=== PATIENT | male | born 1980 | race Caucasian/White ===

== ENCOUNTER → 2022-05-14 09:35 | Outpatient (CLI) | payer OTHER, MEDICAID, SELFPAY ==
[2022-05-14 20:42] LABS: Alanine Aminotransferase 17 IU/L (<50); Albumin 4.1 g/dL (3.5-5.0); Albumin Globulin Ratio 1.3 (1.0-2.8); Alkaline Phosphatase 74 U/L (38-126); Aspartate Aminotransferase 26 IU/L (17-59); BUN Creatinine Ratio 14.9 (6-22); Bilirubin Total 0.8 mg/dL (0.2-1.3); Blood Urea Nitrogen 13 mg/dL (9-20); Calcium 9.5 mg/dL (8.4-10.2); Carbon Dioxide 30 mmol/L (22-32); Chloride 103 mmol/L (98-107); Cholesterol 144 mg/dL (140-199); Estimated Glomerular Filt Rate > 60 mL/min (>60); Globulin 3.2 g/dL (1.7-4.1); Glucose 93 mg/dL (70-100); HDL Cholesterol 53 mg/dL (40-60); HEMOLYSIS < 15 (0-50); LDL Cholesterol Calculated 82 mg/dL (<100); Potassium 4.3 mmol/L (3.4-5.1); Sodium 141 mmol/L (137-145); Total Protein 7.3 g/dL (6.3-8.2); Triglycerides 44 mg/dL (35-150)
== END ==
PROVIDERS: PCP Physician Assistant; Visit Provider Physician Assistant
DX: F41.9 Anxiety disorder, unspecified (principal); H61.891 Other specified disorders of right external ear
CPT/HCPCS: 80053; 80061

== ENCOUNTER 2025-04-04 08:18 | Day surgery (SDC) | payer OTHER, SELFPAY ==
[2025-04-04 08:39] VITALS: BP 132/93; PULSE 90; RESP 15; TEMP 36.4; O2SAT 100
[2025-04-04] MEDS: LACTATED RINGERS 1,000 ML 42 ML IV (08:43)
--- NOTE | 2025-04-04 08:45 | PM.HP.IH.1 ---
History of Present Illness History of Present Illness Date Patient Seen: 04/04/25 Chief complaint: Colonoscopy Narrative: For screening colonoscopy [facility] Medical History (Updated 12/31/24 @ 19:55 by Renee Kincaid MD) Anxiety Depression Social History Smoking Status: Never smoker alcohol intake: never additional social history: No ETOH for 1 year 10/2023 3 yo and 5yo up a lot at night nightmares and GI upset 09/2023 Meds Home Medications and Allergies Home Medications ?Medication ?Instructions ?Recorded ?Confirmed ?Type citalopram 40 mg tablet 40 mg PO DAILY #90 tabs 12/14/24 04/04/25 Rx propranolol 20 mg tablet 20 mg PO BID PRN anxiety/ panic 12/31/24 04/04/25 Rx attack #60 tabs Allergies Allergy/AdvReac Type Severity Reaction Status Date / Time Sulfa (Sulfonamide Allergy Unknown Verified 04/04/25 08:33 Antibiotics) sulfamethoxazole Allergy Unknown Verified 12/31/24 09:05 Exam Vital Signs (past 8 hours): - 04/04/25 08:39 Temperature 97.5 F L Pulse Rate 90 Respiratory Rate 15 Blood Pressure 132/93 H Pulse Oximetry 100 Oxygen Delivery Method Room Air Oxygen Delivery Method Room Air Narrative Exam Narrative: Oropharynx free of lesions Chest clear to auscultation percussion Cardiac exam reveals no S3 or murmur Assessment & Plan Assessment & Plan narrative: For screening colonoscopy. Risks, benefits, alternatives have been explained. Time-Based Coding :: [TOTAL MINUTES] spent with patient and on the chart (including review of chart, obtaining history, exam, reviewing outside data, placing orders, documenting exam and treatment plan, and counseling patient) on [DATE]. [employer] Document charge(s): No
--- NOTE | 2025-04-04 08:46 | PM.OP.COLON ---
Operative Date/Time/Diagnoses Date of procedure: 04/04/25 Time of procedure: 09:02 Pre-op diagnosis: See indication and findings Post-op diagnosis: same Procedure & Clinicians Study performed: Colonoscopy Same procedure as scheduled: Yes Indications: First screening Surgeon: Godfrey Harper Procedure Notes Procedure in detail: After informed consent was obtained the patient was placed in left lateral decubitus position. The video colonoscope was introduced the rectum slowly advanced cecum. Preparation was good. On slow withdrawal mucosa was carefully examined. The scope was removed. The patient tolerated procedure well. Blood loss none Complications none Sedation mac Findings 1. Normal colonoscopy to cecum Patient should have follow-up colonoscopy in 10 years
[2025-04-04 09:05] VITALS: BP 101/72; PULSE 72; RESP 16; TEMP 36.2; O2SAT 98
[2025-04-04 09:10] VITALS: BP 118/73; PULSE 66; RESP 11; O2SAT 99
== END 2025-04-04 09:24 | disposition home or self-care (01) ==
PROVIDERS: PCP Family Medicine; Referring Provider Internal Medicine Gastroenterology; Visit Provider Internal Medicine Gastroenterology
PROC: 0DJD8ZZ Inspection of Lower Intestinal Tract, Via Natural or Artificial Opening Endoscopic (ICD-10-PCS; CPT 45378; principal; 2025-04-04 09:00)
DX: Z12.11 Encounter for screening for malignant neoplasm of colon (principal); F41.8 Other specified anxiety disorders
CPT/HCPCS: G0121; J2704

== ENCOUNTER → 2025-04-19 11:56 | Outpatient (CLI) | payer OTHER, SELFPAY ==
[2025-04-19 19:27] LABS: Add Manual Diff / Slide Review NO; Basophils Absolute Auto 0 /uL (0-100); Basophils Percent Auto 0.5 % (0-2); Eosinophils Absolute Auto 100 /uL (0-450); Eosinophils Percent Auto 2.5 % (2-4); Hematocrit 45.6 % (41-53); Hemoglobin 15.5 g/dL (13.5-17.5); Lymphocytes Absolute Auto 1400 /uL (1100-4500); Lymphocytes Percent Auto 23.3 % (25-40); Mean Corpuscular Hemoglobin 30.7 PG (26-34); Mean Corpuscular Volume 90.2 fL (80-100); Monocytes Absolute Auto 700 /uL (0-900); Monocytes Percent Auto 10.8 % (3-14); Neutrophils Absolute Auto 3800 /uL (1500-7000); Neutrophils Percent Auto 62.9 % (50-75); Platelet Count 209 X10^3/uL (150-400); Red Blood Cell Count 5.05 X10^6/uL (4.5-5.9); Red Cell Distribution Width 13.7 % (11.6-14.8)
[2025-04-19 19:30] LABS: Alanine Aminotransferase 22 IU/L (<50); Albumin 4.4 g/dL (3.5-5.0); Albumin Globulin Ratio 1.5 (1.0-2.8); Alkaline Phosphatase 74 U/L (38-126); Aspartate Aminotransferase 30 IU/L (17-59); BUN Creatinine Ratio 14.8 (6-22); Bilirubin Total 0.8 mg/dL (0.2-1.3); Blood Urea Nitrogen 13 mg/dL (9-20); Calcium 9.5 mg/dL (8.4-10.2); Carbon Dioxide 24 mmol/L (22-32); Chloride 106 mmol/L (98-107); Cholesterol 200 mg/dL (140-199); Estimated Glomerular Filt Rate > 60 mL/min (>60); Globulin 2.9 g/dL (1.7-4.1); Glucose 88 mg/dL (70-99); HDL Cholesterol 61 mg/dL (40-60); HEMOLYSIS < 15 (0-50); LDL Cholesterol Calculated 103 mg/dL (<100); Potassium 4.3 mmol/L (3.4-5.1); Sodium 139 mmol/L (137-145); Total Protein 7.3 g/dL (6.3-8.2); Triglycerides 180 mg/dL (35-150)
[2025-04-19 19:43] LABS: Vitamin D 25 Hydroxy (D3) 21.1 ng/mL (30.0-100.0)
[2025-04-19 19:57] LABS: Thyroid Stimulating Hormone 1.82 uIU/mL (0.47-4.68)
[2025-04-19 20:03] LABS: Ferritin 85 ng/mL (18-464)
[2025-04-19 20:17] LABS: HIV 1 & 2 Ab/Ag 4th Gen Combo NEGATIVE (NEGATIVE)
[2025-04-19 20:49] LABS: Urine N gonorrhoeae NOT DETECTED
[2025-04-19 20:56] LABS: Urine Chlamydia NOT DETECTED
[2025-04-21 00:36] LABS: HBsAg Screen Negative (Negative); Hepatitis A Antibody IgM Negative (Negative); Hepatitis B Core Antibody IgM Negative (Negative); Hepatitis C Antibody Non Reactive (Non Reactive)
== END ==
PROVIDERS: PCP Family Medicine; Visit Provider Family Medicine
DX: F32.9 Major depressive disorder, single episode, unspecified (principal); F41.9 Anxiety disorder, unspecified; Z13.6 Encounter for screening for cardiovascular disorders; Z13.29 Encounter for screening for other suspected endocrine disorder; Z13.1 Encounter for screening for diabetes mellitus; Z13.0 Encounter for screening for diseases of the blood and blood-forming organs and certain disorders involving the immune mechanism; Z11.3 Encounter for screening for infections with a predominantly sexual mode of transmission
CPT/HCPCS: 80053; 80061; 80074; 82306; 82728; 84443; 85025; 86780; 87389; 87491; 87591